=== PATIENT | female | born 1965 | race Caucasian/White ===

== ENCOUNTER 2018-06-16 14:18 | Emergency (ER) | payer MEDICAID, SELFPAY ==
[2018-06-16 14:22] VITALS: BP 137/85; PULSE 99; RESP 20; TEMP 37.2; O2SAT 96
[2018-06-16 14:26] VITALS: RESP 20
--- NOTE | 2018-06-16 14:44 | ED.GENADUL_ITS ---
Discharge Plan Disposition Patient Disposition: HOME Condition: Good Discharge Details Chief Complaint: SOB Clinical Impression: Chest pain Primary Care Provider: Julia Sutton ED Provider: Abner Lopez Home Meds and New Rx's Prescriptions: New lidocaine [Lidoderm] 1 PATCH patch 1 patch Topical Q24H Qty: 4 RF: 0 omeprazole 40 mg capsule,delayed release(DR/EC) 40 mg PO DAILY Qty: 90 RF: 0 Discharge Instructions Instructions: Chest Pain (ED) Additional Instructions: Please take the medication as directed. Avoid any spicy foods, tomato-based foods, citrus foods. If you notice any worsening of your symptoms, or any new symptoms such as vomiting, diarrhea, fever, chills, shortness of breath, chest pain, numbness, weakness, or fainting , please return immediately to the emergency department for reevaluation. Please follow up with your primary care provider as soon as possible for reassessment and reevaluation. As always, it was a pleasure participating in your medical care today. Referrals: Julia Sutton [Primary Care Provider] - Medical Decision Making This is a 53-year-old female who presents for evaluation of muscular skeletal chest pain in the anterior chest. Patient was lifting for a object on the higher shelves yesterday when she felt a pulling sensation over her xiphoid process and since then has had pain with palpation and movement. It was almost completely relieved with NSAIDs that she took at home. She has no other associated red flags of tearing sensation in her chest, arm neck or shoulder pain, hemoptysis, cough, history of cardiac disease or other abnormality. Physical exam demonstrates notably reproducible but mild chest tenderness on palpation of the xiphoid process, bedside limited ultrasound demonstrate normal lung sliding bilaterally, no evidence of pneumothorax. Signs and symptoms are clinically consistent with a muscle strain and at this time clinically inconsistent with ACS, PE, dissection or other abnormality. All pulses are equal, and capillary refill is brisk in all extremities. Out of an abundance of precaution we will get an EKG to rule out any gross abnormalities, however I do feel that her signs and symptoms are still clinically consistent with musculoskeletal component. We will add a Lidoderm patch. 3:26 PM EKG is benign. Patient feels well with the Lidoderm patch. She also does admit to some chronic reflux, and we will give a prescription for omeprazole for home use. We discussed important dietary changes. I have extensively reviewed the treatment plan and discharge instructions with the patient. I have addressed all patient concerns at this time. The patient was made aware of what symptoms to monitor for that would warrant a return to the emergency department. Discussed the plan with the patient, they demonstrate verbal understanding and agreement with our assessment and plan at this time. EKG 14: 51 Rate 83, intervals normal, sinus rhythm, no ST elevations or depressions, no T wave inversions, no Q waves, no's evidence of STEMI. HPI General Date/Time Provider Initiated Documentation: 06/16/18 14:19 . HPI Narrative: This is a 53-year-old female with no significant past medical history who presents today for evaluation of musculoskeletal chest pain. The patient states that yesterday she was reaching up for a can, and felt up a mild pole. after that she had mild pain with movement, and most notably reproducible pain on palpation near the xiphoid, in the lower mid/right chest. She did take ibuprofen this notably improved her symptoms. She denies any cough, fever, chills, abdominal pain or nausea. She denies any focal shortness of breath but does state that it slightly hurts to breathe in that xiphoid-like area when she does take small breath. Denies PE risk factors such as recent long car rides, immobilization, recent surgery, prior history of DVT or PE, family history of PE or DVT, morbid obesity, exogenous estrogen and smoking, hemoptysis, history of cancer. He denies any other complaints at this time. She does admit to multiple strong stressors in her life as of late, including the recent of her father, multiple family issues, and other issues in general. She denies a history of cardiac disease, high cholesterol, hypertension or diabetes. She does not currently smoke. Related Data Home Medications Medication Instructions Recorded Confirmed lidocaine [Lidoderm] 1 patch TOPICAL Q24H #4 patch 06/16/18 omeprazole 40 mg PO DAILY #90 cap 06/16/18 Previous Rx's Medication Instructions Recorded lidocaine [Lidoderm] 1 patch TOPICAL Q24H #4 patch 06/16/18 omeprazole 40 mg PO DAILY #90 cap 06/16/18 Allergies Allergy/AdvReac Type Severity Reaction Status Date / Time No Known Allergies Allergy Unverified 06/16/18 14:27 General Stated Complaint: SOB JO: 3 Review of Systems Review of Systems All systems reviewed & are unremarkable except as noted in HPI and below PFSH Social History Smoking/Tobacco Use Status: Current every day Do you feel safe at home: Yes Do you feel safe in your relationship?: Yes Exam Narrative Exam Narrative: 1.Const: Well-nourished, Well-developed, appearing stated age 2.Eyes: PERRL, no conjunctival injection, and symmetrical lids. 3.ENT: Atraumatic external nose and ears. Moist MM. Neck: Symmetric, trachea midline, No thyromegaly. 4.CVS: +S1/S2, No murmurs or gallops. Peripheral pulses 2+ and equal in all extremities. Brisk capillary refill in all extremities. 5.RESP: Unlabored respiratory effort. Clear to auscultation bilaterally. No wheezes rales or rhonchi, limited bedside portable ultrasound demonstrates po sitive lung sliding in both lung apices while seated in the upright position. No evidence of barcode sign. 6.GI: Soft, Nontender/Nondistended, No hepatosplenomegaly. No guarding or rebound. 7.MSK: Normocephalic/Atraumatic, Extremities w/o deformity. No cyanosis or clubbing, Normal movement of all extremities. Notable reproducible tenderness on palpation of the xiphoid process which the patient states is equivalent to the pain that she is experiencing. No other signs of focal tenderness. This is confirmed with ultrasound over the position of the xiphoid process. 8.Skin: Warm, Dry. No rashes or lesions. 9.Neuro: environmental services specialist II-XII grossly intact. Sensation grossly intact, no focal neurologic deficits. 10.Psych: (AAO) x3. Appropriate mood and affect Course Vital Signs Temperature 37.2 C 06/16/18 14:22 Pulse 99 H 06/16/18 14:22 Respiratory Rate 20 06/16/18 14:22 Blood Pressure 137/85 06/16/18 14:22 Pulse Oximetry 96 06/16/18 14:22 Temperature 37.2 C 06/16/18 14:22 Temperature Source Temporal Artery Scan 06/16/18 14:22 Pulse 99 H 06/16/18 14:22 Respiratory Rate 20 06/16/18 14:26 Respiratory Effort 06/16/18 14:27 Respiratory Depth Normal 06/16/18 14:26 Respiratory Pattern Normal 06/16/18 14:26 Blood Pressure 137/85 06/16/18 14:22 Blood Pressure Position Sitting 06/16/18 14:22 Pulse Oximetry 96 06/16/18 14:22 Oxygen Delivery Method Room Air 06/16/18 14:22 Oxygen Flow Rate 0 06/16/18 14:22 Pain Level 6 06/16/18 14:22
[2018-06-16] MEDS: Lidocaine 5% Patch 1 PATCH TP (15:04)
== END 2018-06-16 15:34 | disposition home or self-care (01) ==
PROVIDERS: Emergency Provider Student in an Organized Health Care Education/Training Program; PCP Nurse Practitioner Family
DX: R07.89 Other chest pain (principal)
CPT/HCPCS: 93005; 99283; 93010

== ENCOUNTER 2019-02-16 17:21 | Outpatient (REF) | payer OTHER, SELFPAY ==
[2019-02-16 21:32] LABS: HCT 41.9 % (36.0-46.0); HGB 14.3 g/dL (12.0-15.5); Mean Corp. HGB Concentration 34.1 g/dL (32.0-36.0); Mean Corpuscular Hemoglobin 32.1 pg (27.0-33.0); Mean Corpuscular Volume 94.2 fL (80-95); Mean Platelet Volume 9.5 fL (8.0-11.0); Platelet Count 231 x1000/uL (130-400); RBC 4.45 m/cumm (4.00-5.20); RBC Distribution Width 13.1 % (11.7-14.6); White Blood Cell Count 7.52 k/cumm (4.4-10.8)
[2019-02-16 21:53] LABS: ALT 16 U/L (14-59); AST 19 U/L (15-37); Albumin 3.4 g/dL (3.4-5.0); Alkaline Phosphatase 71 U/L (46-116); BUN 10 mg/dL (7-18); Bilirubin, Total 0.3 mg/dL (0.2-1.0); CREATININE 0.75 mg/dL (0.55-1.02); Chloride 104 mmol/L (98-107); Glucose 93 mg/dL (74-106); Potassium 3.8 mmol/L (3.5-5.1); Sodium 140 mmol/L (136-145); TSH 1.54 uIU/mL (0.36-3.74); Total Protein 6.2 g/dL (6.4-8.2)
[2019-02-16 22:01] LABS: Hemoglobin A1C 5.6 % (4.5-6.2)
[2019-02-16 22:02] LABS: Absolute Lymphocyte Count 1.88 k/cumm (1.2-3.4); Absolute Monocyte Count 0.75 k/cumm (0.11-0.7); Absolute Neutrophil Count 4.89 k/cumm (1.2-6.7); Atypical Lymphocytes % 4
[2019-02-16 22:03] LABS: RBC Morphology Normal
== END 2019-02-16 17:41 ==
LOC: NCHCN 17:21
PROVIDERS: PCP Nurse Practitioner Family; Visit Provider Registered Nurse
DX: R63.4 Abnormal weight loss (principal); Z00.00 Encounter for general adult medical examination without abnormal findings; R03.0 Elevated blood-pressure reading, without diagnosis of hypertension; F17.200 Nicotine dependence, unspecified, uncomplicated
CPT/HCPCS: 80053; 83036; 84443; 85025

== ENCOUNTER 2019-10-21 11:52 | Outpatient (REF) | payer OTHER, SELFPAY ==
--- NOTE | 2019-10-21 16:00 | PAPFT_PTH ---
PATIENT: Devendra Dickerson LOC: [facility]#:[id number] AGE/SX: 54/F ROOM: RE10/21/[address]: Sapna Moon : 1965 BED: DIS: 10/21/2019 SPEC #: [id number] RECD: 10/24/19 13:03 STATUS: RAÚL REShade #: [id number] ARSALAN: 10/21/19 16:[address]: Sapna Moon DEPT: [facility] Cytology RECD BY: Ciarra Harris ENTERED: 10/24/19 13:03 SP TYPE: PAPFT OTHR DR: Julia Sutton Tissues: 1 - CX/ENDOCX FOR PAP SMEARS Procedures: PAP THIN PREP/[facility] Screening Comments: [id number]
== END 2019-10-21 12:12 ==
LOC: NCHCN 11:52
PROVIDERS: PCP Nurse Practitioner Family; Visit Provider Registered Nurse
DX: Z12.4 Encounter for screening for malignant neoplasm of cervix (principal); R87.612 Low grade squamous intraepithelial lesion on cytologic smear of cervix (LGSIL)
CPT/HCPCS: 88142

== ENCOUNTER 2020-04-20 18:55 | Outpatient (REF) | payer MEDICAID, SELFPAY ==
[2020-04-20 14:52] LABS: Calculated LDL 98 mg/dL (<100); Cholesterol 162 mg/dL (<200); HDL Cholesterol 54 mg/dL (40-60); Triglyceride 54 mg/dL (<150)
== END 2020-04-20 18:56 | disposition home or self-care (01) ==
LOC: NCHCN 18:55
PROVIDERS: PCP Nurse Practitioner Family; Visit Provider Registered Nurse
DX: Z00.00 Encounter for general adult medical examination without abnormal findings (principal)
CPT/HCPCS: 80061

== ENCOUNTER 2021-05-10 16:30 | Outpatient (REF) | payer MEDICAID, SELFPAY ==
[2021-05-10 14:24] LABS: Abs Immature Grans 0.02 10^3/uL (0.0-0.06); Absolute Basophil Count 0.06 10^3/uL (0.0-0.2); Absolute Eosinophil Count 0.08 10^3/uL (0.0-0.7); Absolute Lymphocyte Count 1.28 10^3/uL (1.2-3.4); Absolute Neutrophil Count 4.99 10^3/uL (1.2-6.7); Basophils % 0.9; Eosinophils % 1.2; HCT 44.8 % (36.0-46.0); HGB 14.8 g/dL (11.2-15.7); Immature Grans % 0.3; Lymphocytes % 18.5; MCH 31.7 pg (27.0-33.0); MCV 95.9 fL (80-95); MPV 9.2 fL (8.0-11.0); Monocytes % 7.2; Neutrophils % 71.9; Nucleated RBC 0 %; Platelet Count 251 10^3/uL (130-400); RBC 4.67 10^6/uL (3.93-5.22); RDW 12.7 % (11.7-14.6); WBC 6.93 10^3/uL (4.4-10.8)
[2021-05-10 14:35] LABS: Anion Gap 8.8 mmol/L (3-11); BUN 15 mg/dL (7-18); CO2 26.2 mmol/L (21.0-32.0); CREATININE 0.6 mg/dL (0.55-1.02); Chloride 104 mmol/L (98-107); Glucose 94 mg/dL (74-106); Potassium 4.6 mmol/L (3.5-5.1); Sodium 139 mmol/L (136-145)
[2021-05-10 15:21] LABS: Prothrombin Time 9.8 sec (9.3-11.0)
== END 2021-05-10 16:31 | disposition home or self-care (01) ==
LOC: NCHCN 16:30
PROVIDERS: PCP Nurse Practitioner Family; Visit Provider Registered Nurse
DX: Z01.818 Encounter for other preprocedural examination (principal)
CPT/HCPCS: 80048; 85025; 85610

== ENCOUNTER 2021-10-25 10:20 | Outpatient (REF) | payer MEDICAID, SELFPAY ==
--- NOTE | 2021-10-25 08:00 | PAPFT_PTH ---
PATIENT: Devendra Dickerson LOC: [facility] U#:[id number] AGE/SX: 56/F ROOM: RE10/25/[address]: Sapna Moon : 1965 BED: DIS: 10/25/2021 SPEC #: [id number] RECD: 10/25/21 17:02 STATUS: RAÚL REShade #: [id number] ARSALAN: 10/25/21 08:[address]: Sapna Moon DEPT: [facility] Cytology RECD BY: Ciarra Harris ENTERED: 10/25/21 17:02 SP TYPE: PAPFT OTHR DR: Julia Sutton Tissues: 1 - CX/ENDOCX FOR PAP SMEARS Procedures: PAP THIN PREP/[facility] Screening HPV DNA PROBE Comments: [id number] (CHLAMYDIA/GC)
[2021-10-27 09:30] LABS: HIV-1/2 Ag & Ab Screen Negative (Negative)
[2021-10-28 12:12] LABS: Hepatitis C Ab w Rflx HCV PCR Negative (Negative)
[2021-10-28 14:38] LABS: Chlamydia Result Negative (Negative); GC Result Negative (Negative)
== END 2021-10-25 10:21 | disposition home or self-care (01) ==
LOC: NCHCN 10:20
PROVIDERS: PCP Nurse Practitioner Family; Visit Provider Registered Nurse
DX: Z11.4 Encounter for screening for human immunodeficiency virus [HIV] (principal); Z87.42 Personal history of other diseases of the female genital tract; Z11.59 Encounter for screening for other viral diseases; Z12.72 Encounter for screening for malignant neoplasm of vagina; R87.612 Low grade squamous intraepithelial lesion on cytologic smear of cervix (LGSIL); R87.811 Vaginal high risk human papillomavirus (HPV) DNA test positive
CPT/HCPCS: 86803; 87389; 87491; 87591; 88142; 87624

== ENCOUNTER 2022-02-03 16:07 | Outpatient (REF) | payer MEDICAID, SELFPAY | END 2022-02-03 16:08 | disposition home or self-care (01) | LOC: NCHCN 16:07 | PROVIDERS: PCP Nurse Practitioner Family; Visit Provider Family Medicine | DX: N39.0 Urinary tract infection, site not specified (principal) | CPT/HCPCS: 87077; 87086; 87186 ==

== ENCOUNTER 2022-05-09 15:28 | Outpatient (REF) | payer MEDICAID, SELFPAY ==
[2022-05-09 17:11] LABS: HCT 45.1 % (36.0-46.0); HGB 15.3 g/dL (11.2-15.7); MCH 32.8 pg (27.0-33.0); MCHC 33.9 % (32.0-36.0); MCV 97 fL (80-95); MPV 10.2 fL (8.0-11.0); Platelet Count 175 10^3/uL (130-400); RBC 4.66 10^6/uL (3.93-5.22); RDW 12.9 % (11.7-14.6); RDW-SD 45.9 fL; WBC 8.55 10^3/uL (4.4-10.8)
[2022-05-09 17:19] LABS: ALT 22 U/L (14-59); AST 26 U/L (15-37); Albumin 3.6 g/dL (3.4-5.0); Alkaline Phosphatase 91 U/L (46-116); Anion Gap 7.2 mmol/L (3-11); BUN 11 mg/dL (7-18); Bilirubin, Total 0.4 mg/dL (0.2-1.0); CO2 28.8 mmol/L (21.0-32.0); CREATININE 0.9 mg/dL (0.55-1.02); Calcium 9.2 mg/dL (8.5-10.1); Chloride 104 mmol/L (98-107); Glucose 107 mg/dL (74-106); Lipase 63 U/L (16-77); Potassium 3.8 mmol/L (3.5-5.1); Sodium 140 mmol/L (136-145); Total Protein 6.7 g/dL (6.4-8.2)
== END 2022-05-09 15:29 | disposition home or self-care (01) ==
LOC: NCHCN 15:28
PROVIDERS: PCP Nurse Practitioner Family; Visit Provider Family Medicine
DX: R74.8 Abnormal levels of other serum enzymes (principal)
CPT/HCPCS: 80053; 83690; 85027

== ENCOUNTER 2024-01-19 16:16 | Outpatient (REF) | payer MEDICAID, SELFPAY ==
[2024-01-19 22:20] LABS: HCT 40.8 % (36.0-46.0); HGB 13.5 g/dL (11.2-15.7); MCH 32.1 pg (27.0-33.0); MCHC 33.1 % (32.0-36.0); MCV 97 fL (80-95); MPV 9.8 fL (8.0-11.0); Platelet Count 276 10^3/uL (130-400); RDW 14.3 % (11.7-14.6); RDW-SD 49.9 fL; WBC 6.48 10^3/uL (4.4-10.8)
[2024-01-19 22:50] LABS: ALT 67 U/L (14-59); AST 34 U/L (15-37); Albumin 3.7 g/dL (3.4-5.0); Alkaline Phosphatase 129 U/L (46-116); Anion Gap 7.8 mmol/L (3-11); BUN 9 mg/dL (7-18); CO2 29.2 mmol/L (21.0-32.0); Calcium 9.4 mg/dL (8.5-10.1); Calculated LDL 65 mg/dL (<100); Chloride 107 mmol/L (98-107); Cholesterol 139 mg/dL (<200); Glucose 119 mg/dL (74-106); HDL Cholesterol 65 mg/dL (40-60); Potassium 3.8 mmol/L (3.5-5.1); Sodium 144 mmol/L (136-145); Total Protein 6.9 g/dL (6.4-8.2); Triglyceride 49 mg/dL (<150)
[2024-01-19 23:13] LABS: Lipase 63 U/L (16-77)
== END 2024-01-19 16:17 | disposition home or self-care (01) ==
LOC: NCHCN 16:16
PROVIDERS: PCP Nurse Practitioner Family; Visit Provider Family Medicine
DX: K85.81 Other acute pancreatitis with uninfected necrosis (principal); E78.5 Hyperlipidemia, unspecified
CPT/HCPCS: 80053; 80061; 83690; 85027

== ENCOUNTER 2024-05-10 15:17 | Outpatient (REF) | payer MEDICAID, SELFPAY | END 2024-05-10 15:18 | disposition home or self-care (01) | LOC: NCHCN 15:17 | PROVIDERS: PCP Nurse Practitioner Family; Visit Provider Family Medicine | DX: R31.9 Hematuria, unspecified (principal); R82.89 Other abnormal findings on cytological and histological examination of urine; B96.29 Other Escherichia coli [E. coli] as the cause of diseases classified elsewhere | CPT/HCPCS: 87077; 87086; 87186 ==

== ENCOUNTER 2024-10-26 20:07 | Outpatient (REF) | payer MEDICAID, SELFPAY ==
[2024-10-26 21:03] LABS: HCT 43.7 % (36.0-46.0); HGB 14.8 g/dL (11.2-15.7); MCH 33.5 pg (27.0-33.0); MCHC 33.9 % (32.0-36.0); MCV 99 fL (80-95); MPV 9.5 fL (8.0-11.0); Platelet Count 220 10^3/uL (130-400); RBC 4.42 10^6/uL (3.93-5.22); RDW 12.7 % (11.7-14.6); RDW-SD 46.5 fL; WBC 5.92 10^3/uL (4.4-10.8)
[2024-10-26 21:43] LABS: ALT 25 U/L (14-59); AST 28 U/L (15-37); Albumin 3.7 g/dL (3.4-5.0); Alkaline Phosphatase 74 U/L (46-116); Anion Gap 3.9 mmol/L (3-11); BUN 17 mg/dL (7-18); Bilirubin, Total 0.4 mg/dL (0.2-1.0); CO2 32.1 mmol/L (21.0-32.0); Calcium 9.2 mg/dL (8.5-10.1); Calculated LDL 82 mg/dL (<100); Chloride 103 mmol/L (98-107); Cholesterol 154 mg/dL (<200); Estimated GFR 98.95 (mL/min/1.73m2); Glucose 88 mg/dL (74-106); HDL Cholesterol 60 mg/dL (>or=50); Potassium 4.6 mmol/L (3.5-5.1); Sodium 139 mmol/L (136-145); TSH (W/Ref FT4) 1.03 uIU/mL (0.36-3.74); Total Protein 6.6 g/dL (6.4-8.2); Triglyceride 61 mg/dL (<150)
== END 2024-10-26 20:08 | disposition home or self-care (01) ==
LOC: NCHCN 20:07
PROVIDERS: PCP Nurse Practitioner Family; Visit Provider Family Medicine
DX: R63.5 Abnormal weight gain (principal); R53.83 Other fatigue; E78.5 Hyperlipidemia, unspecified
CPT/HCPCS: 80053; 80061; 85027; 84443